=== PATIENT | female | born 1970 | race Caucasian/White ===

== ENCOUNTER 2016-11-29 21:52 | Emergency (ER) | payer SELFPAY ==
[~2016-11-29] VITALS: Ht 167.6 cm; Wt 67.7 kg
[2016-11-29 21:56] VITALS: Ht 167.6 cm; Wt 67.7 kg
[2016-11-29] MEDS ORDERED: HYDROCODONE/APAP (5/325) TAB PO ONE (23:00)
--- NOTE | 2016-11-29 23:55 | RADRPT ---
PROCEDURE: X-ray right knee. CLINICAL INDICATION: Right knee pain, with reference marker directed towards the lateral aspect of the lateral femoral condyle. TECHNIQUE: 3 views right knee. COMPARISON: None FINDINGS: No acute fracture or dislocation. No joint effusion. Soft tissues unremarkable. IMPRESSION: No acute fracture. RPTAT: [facility] Physician Anne Marie Date Time Electronically viewed and signed by Caesar Coughlin Physician on 11/29/2016 23:55 RS/
--- NOTE | 2016-11-30 00:02 | ERD ---
ER Documentation Chief Complaint Date/Time DATE: 11/29/16 TIME: 23:59 Chief Complaint slipped and fell around 2119, c/o right knee pain HPI 46-year-old female who presents to the emergency department today complaining of right knee pain after slipping and falling in a piece of fruit at [employer] Denies any previous trauma, fevers or chills. States she is able to ambulate but has pain. ROS All systems reviewed and are negative except as per history of present illness. Medications Home Meds Active Scripts Acetaminophen* (Tylophen*) 500 Mg Capsule, 1 CAP PO Q6H Y for PAIN AND OR ELEVATED TEMP, #30 CAP Prov:JULIETH HUERTAS PA-C 11/30/16 Naproxen* (Naprosyn*) 500 Mg Tablet, 500 MG PO BID Y for PAIN AND/OR INFLAMMATION, #30 TAB Prov:JULIETH HUERTAS PA-C 11/30/16 Allergies Allergies: Coded Allergies: No Known Drug Allergies (Verified Allergy, Unknown, 11/29/16) PMhx/Soc Medical and Surgical Hx: pt denies Medical Hx, pt denies Surgical Hx Hx Alcohol Use: No Hx Substance Use: No Hx Tobacco Use: No Physical Exam Vitals Vital Signs Date Time Temp Pulse Resp B/P Pulse Ox O2 Delivery O2 Flow Rate FiO2 11/29/16 21:56 99.3 73 20 135/78 98 Physical Exam Const: Sitting in wheelchair, no acute distress Head: Atraumatic Eyes: Normal Conjunctiva ENT: Normal External Ears, Nose and Mouth. Neck: Full range of motion..~ No meningismus. Resp: Clear to auscultation bilaterally Cardio: Regular rate and rhythm, no murmurs Abd: Soft, non tender, non distended. Normal bowel sounds Skin: No petechiae or rashes. Abrasion right MSK: Right knee with no obvious deformity. Full active range of motion. Mild effusion over lateral aspect of knee. Pulses 2+. Distal neurovascularly intact Neur: Awake and alert Psych: Normal Mood and Affect Results 24 hrs Current Medications Medications (Trade) Dose Ordered Sig/Sukhjinder Route PRN Reason Start Time Stop Time Status Last Admin Dose Admin Acetaminophen/ Hydrocodone Bitart ([place] (5/325)) 1 tab ONCE ONCE PO 11/29/16 23:00 11/29/16 23:01 DC DIAGNOSTIC IMAGING REPORT Patient: KARL SALDANA : 1970 Age: 46 Sex: F MR #: [id number] DOS: 11/29/16 0000 Ordering MD: JULIETH HUERTAS PA-C Location: [facility] Room/Bed: PROCEDURE: X-ray right knee. CLINICAL INDICATION: Right knee pain, with reference marker directed towards the lateral aspect of the lateral femoral condyle. TECHNIQUE: 3 views right knee. COMPARISON: None FINDINGS: No acute fracture or dislocation. No joint effusion. Soft tissues unremarkable. IMPRESSION: No acute fracture. RPTAT: [facility] Physician Anne Marie Date Time Electronically viewed and signed by Physician Anne Marie on 11/29/2016 23:55 RS/ CC: JULIETH HUERTAS PA-C Procedures/MDM This a 46-year-old female who presents the emergency department today complaining of right knee pain after slipping and falling piece of fruit at [employer]. Given that there was trauma and patient had a small amount of swelling and she was sent here with a note I did obtain images Per the radiology report images of the right knee show no acute fracture dislocation. There is no joint effusion. Soft tissues are unremarkable. Patient symptoms at this time is consistent with sprain versus strain versus contusion secondary to fall Patient was given [place] here in the emergency department. I will give her prescription for Naprosyn and Tylenol for home. She was given crutches to help ambulate. She declined a knee immobilizer. At this time the patient is stable for discharge and outpatient management. Patient should follow up with their PCP in the next 1-2 days. They may return to the emergency department sooner for any persistent or worsening of symptoms. Patient understood and agreed with the plan. Departure Diagnosis: Primary Impression: Knee injury Encounter type: initial encounter Laterality: right Qualified Code: S89.91XA - Knee injury, right, initial encounter Condition: Fair JULIETH HUERTAS PA-C Nov 30, 2016 00:01
[2016-11-30] MEDS ORDERED: NAPR-260 PO (00:06)
[2016-11-30] MEDS ORDERED: ACET500C5 PO (00:07)
[2016-11-30 00:35] VITALS: BP 146/67; PULSE 78; RESP 20; TEMP 99.3
== END 2016-11-30 00:35 | disposition home or self-care (01) ==
LOC: FTE 21:52
DX: S89.91XA Unspecified injury of right lower leg, initial encounter (principal); W01.0XXA Fall on same level from slipping, tripping and stumbling without subsequent striking against object, initial encounter; Y92.89 Other specified places as the place of occurrence of the external cause
CPT/HCPCS: 73562